=== PATIENT | female | born 1975 | race Caucasian/White ===

== ENCOUNTER 2016-07-31 17:47 | Emergency (ER) | payer OTHER | END 2016-07-31 20:15 | disposition home or self-care (01) | LOC: ER1 17:47 | DX: J01.10 Acute frontal sinusitis, unspecified (principal); F17.210 Nicotine dependence, cigarettes, uncomplicated | CPT/HCPCS: 87081; 87880; 99283 ==

== ENCOUNTER 2020-11-19 19:13 | Emergency (ER) | payer OTHER ==
[~2020-11-19 19:13] MED LIST: FEOSOL325 MG PO; NEOSPORIN OINT30 GM TOP; NORCO 5-325 TA1 EACH PO
== END 2020-11-19 20:18 | disposition home or self-care (01) ==
LOC: ER1 19:13
DX: S90.31XA Contusion of right foot, initial encounter (principal); F17.200 Nicotine dependence, unspecified, uncomplicated; W10.9XXA Fall (on) (from) unspecified stairs and steps, initial encounter; Y92.009 Unspecified place in unspecified non-institutional (private) residence as the place of occurrence of the external cause
CPT/HCPCS: 73630; 99283